=== PATIENT | male | born 1975 | race Caucasian/White ===

== ENCOUNTER → 2018-06-27 09:00 | Outpatient (CLI) | payer OTHER, SELFPAY ==
--- NOTE | 2018-06-27 09:43 | EKG12_ITS ---
Test Reason : PRE OP Blood Pressure : / mmHG Vent. Rate : 091 BPM Atrial Rate : 091 BPM P-R Int : 140 ms QRS Dur : 094 ms QT Int : 360 ms P-R-T Axes : 038 015 031 degrees QTc Int : 442 ms Normal sinus rhythm Nonspecific T wave abnormality Confirmed by GIOVANI LEIVA, SHITAL ([id number]), order editor OLESYA LOPEZ ([id number]) on 06/27/2018 2:04:12 PM Referred By: Sanjiv Espinal Confirmed By:SHITAL MATUTE MD
== END ==
LOC: PSN 09:15 → CVS 09:18
PROVIDERS: Referring Provider Orthopaedic Surgery; Visit Provider Orthopaedic Surgery
DX: F51.12 Insufficient sleep syndrome (principal)
CPT/HCPCS: 93005

== ENCOUNTER → 2021-01-16 15:31 | Outpatient (CLI) | payer OTHER, SELFPAY ==
[2021-01-16 15:06] VITALS: BMI 45.6
[2021-01-16 17:17] LABS: Follicle Stimulating Hormone 2.5 mIU/mL; Luteinizing Hormone 2.5 mIU/mL; Prolactin 10.6 ng/mL
[2021-01-21 12:08] LABS: Testosterone, Free 6.35 ng/dL (5.00-21.00)
[2021-01-21 13:06] LABS: Testosterone, % Free 4.81 % (1.50-4.20); Testosterone, Total 132 ng/dL (264-916)
== END ==
PROVIDERS: Referring Provider Internal Medicine Endocrinology, Diabetes & Metabolism; Visit Provider Internal Medicine Endocrinology, Diabetes & Metabolism
DX: E11.9 Type 2 diabetes mellitus without complications (principal); R53.83 Other fatigue
CPT/HCPCS: 36415; 83001; 83002; 84146; 84402; 84403

== ENCOUNTER → 2025-05-27 | Outpatient (CLI) | payer OTHER, SELFPAY ==
--- NOTE | 2025-05-27 08:17 | EKG12_ITS ---
Test Reason : PREOP Blood Pressure : */* mmHG Vent. Rate : 80 BPM Atrial Rate : 80 BPM P-R Int : 130 ms QRS Dur : 90 ms QT Int : 356 ms P-R-T Axes : 14 35 46 degrees QTcB Int : 410 ms Normal sinus rhythm Normal ECG Confirmed by Sanjiv Madrid ([id number]), news editor ROXANA FLETCHER ([id number]) on 05/27/2025 1:26:45 PM Referred By: MARIA ANTONIA CHAPMAN Confirmed By: Sanjiv Madrid
== END | disposition home or self-care (01) ==
PROVIDERS: PCP Family Medicine
DX: S83.511A Sprain of anterior cruciate ligament of right knee, initial encounter (principal); E11.9 Type 2 diabetes mellitus without complications; E78.00 Pure hypercholesterolemia, unspecified; X58.XXXA Exposure to other specified factors, initial encounter
CPT/HCPCS: 93005